=== PATIENT | female | born 1995 | race Caucasian/White ===

== ENCOUNTER → 2017-02-28 | Outpatient (CLI) | payer MEDICAID ==
[~2017-02-28] MED LIST: BACTRIM DS 8001 TA1 PO
--- NOTE | 2017-03-01 11:03 | RADIOLOGY REPORT PS360 ---
US PELVIS-TRANSVAGINAL ONLY Ordering Physician: Juvenal Aguila MD Patient Age: 21 years: Female HISTORY: DUB, DYSPLASIA OF CERVIX UTERI TECHNIQUE: Transvaginal pelvic ultrasoundmw COMPARISON : None available FINDINGS UTERUS: appears upper normal in size: 8.5l cm length X 3.5 cm x 1.4 cm transverse.. No masses or fibroids . Endometrial stripe measures 5.4 mm AP.. Slightly hypoechoic appearance of the junctional zone surrounding the endometrium. Nonspecific. RIGHT OVARY: 3.7 cm x 2.3 cm as 1.9 cm. .1.5 x 1.3 x 1 cm dominant cyst right ovary; along with numerous other small follicle cyst measuring less than 6 mm size.. LEFT OVARY: 3.8 x 2.1 x 1.6 cm. Left ovary Contains a cyst measuring up to 1 cm x 1.25 cm. Other small follicles are seen at the left ovary-these these measuring up less than 6-mm . Somewhat polycystic appearance to both ovaries.No free fluid in cul-de-sac. Incidental note fluid-filled bowel loops left adnexa IMPRESSION: 1. Uterus within normal limits. . No discrete fibroids or masses evident.Upper normal length normal. Endometrial stripe normal thickness 2. Ovaries are upper normal in size with numerous cysts throughout,/somewhat polycystic appearance. Most notable Dominant follicle cyst 1.5 cm cyst at right ovary. With a a 1.25 cm cyst left ovary noted . 3. No fluid in cul-de-sac. 4. Nonspecific Fluid-filled bowel loops towards left pelvis left adnexa noted to
== END ==
LOC: RAD 02-21 13:00
DX: N87.9 Dysplasia of cervix uteri, unspecified (principal); N94.89 Other specified conditions associated with female genital organs and menstrual cycle